=== PATIENT | female | born 2000 | race Two or more races ===

== ENCOUNTER 2022-11-01 11:25 | Emergency (ER) | payer OTHER ==
[~2022-11-01] VITALS: Ht 160 cm; Wt 81.6 kg
[2022-11-01] MEDS ORDERED: ACETAMINOPHEN ES 500 MG TABLET ONE (12:14)
[2022-11-01] MEDS ORDERED: CYCLOBENZAPRINE 10 MG TABLET ONE (12:14)
[2022-11-01] MEDS: ACETAMINOPHEN ES 500 MG TABLET PO ONE (12:16)
[2022-11-01] MEDS: CYCLOBENZAPRINE 10 MG TABLET PO ONE (12:16)
[2022-11-01 15:20] VITALS: BP 106/65; TEMP 98; O2SAT 100
== END 2022-11-01 15:21 | disposition home or self-care (01) ==
LOC: ER 11:32
DX: S20.212A Contusion of left front wall of thorax, initial encounter (principal); F41.9 Anxiety disorder, unspecified; V89.2XXA Person injured in unspecified motor-vehicle accident, traffic, initial encounter; Y93.89 Activity, other specified; Y92.89 Other specified places as the place of occurrence of the external cause; Y99.8 Other external cause status
CPT/HCPCS: 71045-TC

== ENCOUNTER 2024-09-17 18:11 | Emergency (ER) | payer OTHER ==
[~2024-09-17] VITALS: Ht 162.6 cm; Wt 79.4 kg
[2024-09-17] MEDS ORDERED: KETOROLAC TROMETHAMINE 15 MG/ML VIAL ONE (19:56)
[2024-09-17] MEDS: KETOROLAC TROMETHAMINE 15 MG/ML VIAL IM ONE (19:58)
[2024-09-17 22:23] VITALS: BP 124/78; TEMP 98.5; O2SAT 98
== END 2024-09-17 22:23 | disposition home or self-care (01) ==
LOC: ER 18:19
DX: S80.02XA Contusion of left knee, initial encounter (principal); S80.11XA Contusion of right lower leg, initial encounter; S60.221A Contusion of right hand, initial encounter; S40.012A Contusion of left shoulder, initial encounter; M54.9 Dorsalgia, unspecified; R51.9 Headache, unspecified; M79.18 Myalgia, other site; F41.9 Anxiety disorder, unspecified; F12.10 Cannabis abuse, uncomplicated; Y04.0XXA Assault by unarmed brawl or fight, initial encounter; Y93.89 Activity, other specified; Y92.098 Other place in other non-institutional residence as the place of occurrence of the external cause; Y99.8 Other external cause status
CPT/HCPCS: 99285; 70450; 96372; 72040; 72100; 72074; J1885